=== PATIENT | male | born 2005 | race Asian ===

== ENCOUNTER 2025-09-08 11:46 | Emergency (ER) | payer SELFPAY ==
[~2025-09-08] VITALS: Ht 167.6 cm; Wt 64.9 kg
[2025-09-08 11:48] VITALS: BP 117/64; TEMP 98.5; O2SAT 100
== END 2025-09-08 12:36 | disposition left against medical advice (07) ==
LOC: M ED 11:46
DX: Z53.21 Procedure and treatment not carried out due to patient leaving prior to being seen by health care provider (principal)

== ENCOUNTER 2025-09-10 10:01 | Emergency (ER) | payer OTHER, SELFPAY ==
[~2025-09-10] VITALS: Ht 167.6 cm; Wt 63.6 kg
[2025-09-10 10:13] VITALS: BP 119/72; TEMP 97.5; O2SAT 97
[2025-09-10] MEDS ORDERED: SULF1TAB23 PO (10:34)
== END 2025-09-10 10:59 | disposition home or self-care (01) ==
LOC: M ED 10:01
DX: L08.89 Other specified local infections of the skin and subcutaneous tissue (principal); Z79.2 Long term (current) use of antibiotics